=== PATIENT | male | born 2000 | race African-American/Black ===

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

== ENCOUNTER 2021-10-19 08:43 | Emergency (ER) | payer OTHER, SELFPAY ==
[2021-10-19] MEDS ORDERED: Ketorolac Tromethamine 30 MG/ML VIAL ONE (10:19)
== END 2021-10-19 10:39 | disposition home or self-care (01) ==
LOC: ERS 08:43
DX: S39.012A Strain of muscle, fascia and tendon of lower back, initial encounter (principal); M62.830 Muscle spasm of back; X50.9XXA Other and unspecified overexertion or strenuous movements or postures, initial encounter
CPT/HCPCS: 96372; 99283; J1885